=== PATIENT | female | born 1980 | race Hispanic/Latino ===

== ENCOUNTER 2022-05-18 08:54 | Emergency (ER) | payer OTHER ==
[~2022-05-18] VITALS: Ht 149.9 cm; Wt 49.9 kg
[2022-05-18] MEDS ORDERED: PREDNISONE20 MG PO (09:51)
[2022-05-18] MEDS ORDERED: BENZONATATE100 MG PO (09:51)
== END 2022-05-18 09:57 | disposition home or self-care (01) ==
LOC: FSED 08:57
DX: J02.9 Acute pharyngitis, unspecified (principal)
CPT/HCPCS: 83518; 87400; 99283